=== PATIENT | female | born 1990 | race Caucasian/White ===

== ENCOUNTER 2016-12-14 23:30 | Emergency (ER) | payer OTHER ==
--- NOTE | ~2016-12-14 | US85 ---
[facility] A Service of [facility] & [facility] RADIOLOGY TEXT RESULTS PATIENT: MILLY IRVING LOCATION: [facility] : 86 UNIT #: [id number] AGE: [address]: Raya Russ APRN SEX: F ORDER DR: [id number] [facility] [address] [place], [place] [address] [id number] MR#: [id number] Acc #: [id number] NAME: MILLY IRVING. : 1990 SEX: F STUDY DATE/TIME: 12/14/2016 23:10 UNIT: CFTX ROOM: STUDY DESCRIPTION: [facility] Attending Physician: Raya Russ A.P.R.N. Ordering Physician: Raya Russ A.P.R.N. [facility] REPORT This report is preliminary unless electronic signature is present EXAM Venous Doppler ultrasound, right leg, 12/14/2016 HISTORY 26-year-old female in the ED complaining of 1-2 week history of right leg pain and swelling. TECHNIQUE Venous ultrasound examination of the right lower extremity was performed using grayscale, spectral Doppler and color flow Doppler imaging. FINDINGS The examination is negative. There is no evidence of right lower extremity deep venous thrombus from the groin to the lower calf. Visualized greater saphenous vein is also patent. IMPRESSION Negative examination. No evidence of right lower extremity deep venous thrombosis. Dictated by... Hood Hernandez M.D. THIS IS AN ELECTRONICALLY VERIFIED REPORT Hood Hernandez M.D. at 12/15/2016 5:59 AM EFRAIN/jonas TD: 12/15/2016 00:14 JOB #: [id number] MEDICAL IMAGING REPORT Page 1 of 1 COPY
[2016-12-14 23:09] LABS: URINE SOURCE CLEAN CATCH
[2016-12-14 23:23] LABS: URINE APPEARANCE CLEAR; URINE BILIRUBIN NEG (NEG); URINE BLOOD NEG (NEG); URINE COLOR YELLOW; URINE GLUCOSE NEG (NEG); URINE KETONE NEG (NEG); URINE LEUKOCYTE ESTERASE 2+ (NEG); URINE NITRATE NEG (NEG); URINE PH 5.5 (5-8); URINE PROTEIN NEG (NEG); URINE SPECIFIC GRAVITY 1.033 (1.003-1.035)
[2016-12-14 23:25] LABS: CULTURE INDICATED? YES; URBCS1 AUWI 0-2 /[HPF] (0-2); URINE BACTERIA AUWI 3+ (NEGATIVE); URINE SQUAMOUS EPITHELIAL CELL FEW /[HPF]
[~2016-12-14 23:30] MED LIST: AMOXICILLIN500 M1 PO; ANTIVERT PO; BACTRIM DS TABL1 TA1 PO; FLEXERIL PO; LIDOCAINE VISCOU1 ML PO; LORTAB 5/500 TA1 TA1 PO; MOTRIN600 MG PO; NAPROSYN500 MG PO; NO MEDICATIONS; ONDANSETRON4 MG/TAB DOB; PHENERGAN25 MG PO; POLYTRIM O10 ML OPTH OS; PRENATAL1 TA1 PO; PRILOSEC PO; SYNTHROID PO; SYNTHROID75 MCG PO; TYLENOL #3 PO; ULTRAM PO; ZOLOFT PO
== END 2016-12-15 00:04 | disposition home or self-care (01) ==
LOC: CFTX 23:30
PROVIDERS: Nurse Practitioner
DX: M79.661 Pain in right lower leg (principal); N39.0 Urinary tract infection, site not specified; K21.9 Gastro-esophageal reflux disease without esophagitis; F17.210 Nicotine dependence, cigarettes, uncomplicated
CPT/HCPCS: 81003; 84703; 87086; 87088; 87186; 93971; 99284